=== PATIENT | male | born 1985 | race African-American/Black ===

== ENCOUNTER 2023-01-30 17:56 | Emergency (ER) | payer SELFPAY ==
[2023-01-30] MEDS ORDERED: Azithromycin 250 MG Tab PO ONE (18:57)
[2023-01-30] MEDS ORDERED: cefTRIAXone 250 MG, Lidocaine 1% 0.9 ML IM SCH ×2 (19:00)
[2023-01-30 20:31] LABS: C. TRACHOMATIS BY PCR NOT DETECTED; N. GONORRHOEAE BY PCR NOT DETECTED
== END 2023-01-30 19:37 | disposition home or self-care (01) ==
LOC: JD.ED 17:56
DX: R36.9 Urethral discharge, unspecified (principal); F17.210 Nicotine dependence, cigarettes, uncomplicated
CPT/HCPCS: 87491; 87591; 96372; 99283; A9270; J0696; J3490

== ENCOUNTER 2024-01-03 11:43 | Emergency (ER) | payer SELFPAY ==
[2024-01-03] MEDS: cefTRIAXone 500 MG, Lidocaine 1% 1 ML IM SCH (12:56)
[2024-01-03] MEDS: Penicillin G Benzathine 1,200,000 Units/2 ML Syringe IM ONE (13:30)
[2024-01-03 14:50] LABS: C. TRACHOMATIS BY PCR NOT DETECTED; N. GONORRHOEAE BY PCR NOT DETECTED
== END 2024-01-03 13:22 | disposition home or self-care (01) ==
LOC: JD.ED 11:43
DX: Z11.3 Encounter for screening for infections with a predominantly sexual mode of transmission (principal); Z20.2 Contact with and (suspected) exposure to infections with a predominantly sexual mode of transmission
CPT/HCPCS: 36415; 86592; 87449; 87491; 87591; 96372; 99283; J0696; G0433; J3490